=== PATIENT | male | born 1975 | race Caucasian/White ===

== ENCOUNTER 2017-03-26 14:26 | Emergency (ER) | payer OTHER ==
[~2017-03-26] VITALS: Ht 177.8 cm; Wt 97.5 kg
[~2017-03-26 14:26] MED LIST: ACETAMINOPHEN325 M1 PO; ANDROGEL1.25 GM TD; CEPHALEXIN 500500 M3 PO; COLACE100 MG PO; HYDROCODON-ACE1 EAC7 PO; IBUPROFEN 800800 M1 PO; OXYCONTIN30 MG PO; ROBAXIN 750 MG750 M1 PO; ROXICODONE15 M1 PO; ROXICODONE5 M1 PO; TRAMADOL 50 MG50 MG PO; ULTRAM ER200 MG PO
[2017-03-26] MEDS ORDERED: TRAMADOL 50 MG50 MG PO (14:43)
[2017-03-26] MEDS ORDERED: OSELB75 PO (14:46)
[2017-03-26 14:58] VITALS: BP 141/89
== END 2017-03-26 14:49 | disposition home or self-care (01) ==
LOC: M.ERS 14:26
DX: J11.1 Influenza due to unidentified influenza virus with other respiratory manifestations (principal)